=== PATIENT | male | born 1985 | race Caucasian/White ===

== ENCOUNTER → 2018-03-01 | Outpatient (CLI) | payer OTHER ==
[~2018-03-01] MED LIST: AMBIEN 5MG TABLE5 MG PO; AMOXICILLIN 8751 TAB PO; ASPIRIN 81M81 MG/TA2 PO; DESYREL 50MG50 MG PO; LORTAB 5/500 501 TAB PO; MINIPRESS 5M5 MG/CAP PO; MOTRIN 800800 MG/TAB PO; NO HOME MEDICATIONS; NORCO 325 MG-51 TAB PO; PREVACID 30MG30 MG PO; PRINZIDE 12.5 M1 TAB PO; ULTRAM 50MG TAB50 MG PO; WELLBUTRIN XL150 MG PO; ZANAFLEX CAPSULE2 MG PO; ZITHROMAX 250M250 MG PO
== END ==
LOC: COL.RAD 02-07 12:30
DX: Z01.818 Encounter for other preprocedural examination (principal); M50.222 Other cervical disc displacement at C5-C6 level; M48.02 Spinal stenosis, cervical region; M51.24 Other intervertebral disc displacement, thoracic region